=== PATIENT | male | born 1970 | race Caucasian/White ===

== ENCOUNTER → 2020-08-21 | Outpatient (CLI) | payer OTHER ==
[2020-08-21 10:12] LABS: BUN/CREATININE RATIO 17; CARBON DIOXIDE 24 MMOL/L (21-32); CHLORIDE 105 MMOL/L (98-107); CREATININE SERUM 1.21 MG/DL (0.60-1.30); GFR ESTIMATED > 60; POTASSIUM 4.1 MMOL/L (3.6-5.0); SODIUM 140 MMOL/L (135-145)
[2020-08-21 10:13] LABS: CALCIUM 9.3 MG/DL (8.5-10.1); GLUCOSE 175 MG/DL (70-105)
== END ==
LOC: LAB FS 08:52
PROVIDERS: ATTEND Urology
DX: N40.0 Benign prostatic hyperplasia without lower urinary tract symptoms (principal); E23.0 Hypopituitarism
CPT/HCPCS: 36415; 80048; 83001; 83002; 84146; 84153; 84270; 84403